=== PATIENT | male | born 1950 | race Caucasian/White ===

== ENCOUNTER → 2023-10-25 09:50 | Outpatient (REF) | payer MEDICARE, BC, SELFPAY ==
[2023-10-25 12:15] LABS: AST (SGOT) 27 U/L (17-59); Albumin 4.1 g/dl (3.5-5.0); Blood Urea Nitrogen 12 mg/dl (9-20); Carbon Dioxide 27 mmol/L (22-30); Glucose 93 mg/dl (70-99); Total Bilirubin 0.8 mg/dl (0.2-1.3); Total Cholesterol 151 mg/dl (50-199); Total Protein 6.8 g/dl (6.3-8.2); Triglyceride 85 mg/dl (10-149); Very Low Density Lipoprotein 17 mg/dl (0-30); eGFR > 60.00
[2023-10-25 12:17] LABS: % Basophils 0.8 % (0-2); % Eosinophils 2.2 % (0-6); % Immature Granulocytes 0.3 % (0-0.5); % Lymphocytes 21.9 % (20.5-51.1); % Monocytes 10.6 % (1.7-9.3); % Neutrophils 64.2 % (42.2-75.2); Absolute Basophils 0.1 10^3/uL (0-0.2); Absolute Eosinophils 0.2 10^3/uL (0-0.7); Absolute Lymphocytes 1.7 10^3/uL (1.2-3.4); Absolute Monocytes 0.8 10^3/uL (0.1-0.6); Hematocrit 38.7 % (39.0-52.0); Hemoglobin 13.2 g/dL (13.0-18.0); Mean Corp Hgb Conc. 34.1 g/dL (33.0-37.0); Mean Corpuscular Hgb 30.3 pg (27.0-31.0); Nucleated Red Blood Cells % 0 % (-); Platelet Count 282 10^3/uL (130-400); Red Blood Cell Count 4.35 10^6/uL (4.70-6.10); Red Cell Dist. Width 12.6 % (11.5-14.5); White Blood Cell Count 7.7 10^3/uL (4.8-10.8)
[2023-10-25 12:31] LABS: ALT (SGPT) 19 U/L (0-50); Alkaline Phosphatase 95 U/L (38-126); Calcium 9.2 mg/dl (8.4-10.2); Chloride 104 mmol/L (98-107); HDL Cholesterol 46 mg/dl; LDL Cholesterol, Calculated 88 mg/dl; Potassium 4.7 mmol/L (3.5-5.1); Sodium 139 mmol/L (135-145)
[2023-10-25 12:44] LABS: PSA, Total - Screen 1.74 ng/ml (0.0-4.0)
== END ==
LOC: HWLAB 09:50
PROVIDERS: ATTENDING PHYSICIAN Family Medicine
DX: J45.30 Mild persistent asthma, uncomplicated (principal); E78.2 Mixed hyperlipidemia; I10 Essential (primary) hypertension; Z12.5 Encounter for screening for malignant neoplasm of prostate
CPT/HCPCS: 36415; 80053; 80061; 85025; G0103

== ENCOUNTER → 2023-11-23 08:31 | Outpatient (REF) | payer MEDICARE, BC, SELFPAY | LOC: DHCBC/DCA 08:31 | PROVIDERS: ATTENDING PHYSICIAN Internal Medicine Cardiovascular Disease; FAMILY PHYSICIAN Family Medicine | DX: R06.09 Other forms of dyspnea (principal); I25.10 Atherosclerotic heart disease of native coronary artery without angina pectoris; Z95.5 Presence of coronary angioplasty implant and graft | CPT/HCPCS: 78452; 93017; A9500 ==

== ENCOUNTER → 2023-11-27 14:48 | Outpatient (REF) | payer MEDICARE, BC, SELFPAY | LOC: HWRCS 14:48 | PROVIDERS: ATTENDING PHYSICIAN Internal Medicine Cardiovascular Disease; FAMILY PHYSICIAN Family Medicine | DX: I25.10 Atherosclerotic heart disease of native coronary artery without angina pectoris (principal); R06.09 Other forms of dyspnea; Z95.5 Presence of coronary angioplasty implant and graft | CPT/HCPCS: 93306 ==

== ENCOUNTER → 2023-12-27 09:45 | Outpatient (REF) | payer MEDICARE, BC, SELFPAY | LOC: HWRAD 09:45 | PROVIDERS: ATTENDING PHYSICIAN Physician Assistant | DX: J40 Bronchitis, not specified as acute or chronic (principal) | CPT/HCPCS: 71046 ==

== ENCOUNTER → 2024-10-03 08:13 | Outpatient (REF) | payer MEDICARE, BC, SELFPAY ==
[2024-10-03 11:13] LABS: % Eosinophils 3.1 % (0-6); % Immature Granulocytes 0.1 % (0-0.5); % Lymphocytes 28.9 % (20.5-51.1); % Monocytes 12.7 % (1.7-9.3); % Neutrophils 54.2 % (42.2-75.2); Absolute Basophils 0.1 10^3/uL (0-0.2); Absolute Eosinophils 0.2 10^3/uL (0-0.7); Absolute Monocytes 0.9 10^3/uL (0.1-0.6); Absolute Neutrophils 3.8 10^3/uL (1.4-6.5); Hematocrit 39.6 % (39.0-52.0); Hemoglobin 13.4 g/dL (13.0-18.0); Mean Corp Hgb Conc. 33.8 g/dL (33.0-37.0); Mean Corpuscular Hgb 30.7 pg (27.0-31.0); Mean Corpuscular Volume 90.8 fL (80.0-94.0); Mean Platelet Volume 10.8 fL (7.4-10.4); Nucleated Red Blood Cells % 0 % (-); Platelet Count 233 10^3/uL (130-400); Red Blood Cell Count 4.36 10^6/uL (4.70-6.10); Red Cell Dist. Width 12.6 % (11.5-14.5)
[2024-10-03 11:21] LABS: ALT (SGPT) 19 U/L (0-50); AST (SGOT) 21 U/L (17-59); Albumin 4.1 g/dl (3.5-5.0); Alkaline Phosphatase 74 U/L (38-126); Blood Urea Nitrogen 12 mg/dl (9-20); Carbon Dioxide 28 mmol/L (22-30); Chloride 107 mmol/L (98-107); Glucose 93 mg/dl (70-99); HDL Cholesterol 41 mg/dl; LDL Cholesterol, Calculated 78 mg/dl; Magnesium 2.1 mg/dl (1.6-2.3); Potassium 4.6 mmol/L (3.5-5.1); Sodium 140 mmol/L (135-145); Total Bilirubin 0.5 mg/dl (0.2-1.3); Total Cholesterol 132 mg/dl (50-199); Total Protein 6.7 g/dl (6.3-8.2); Triglyceride 69 mg/dl (10-149); Very Low Density Lipoprotein 13 mg/dl (0-30); eGFR > 60.00
[2024-10-03 12:35] LABS: PSA, Total - Screen 1.55 ng/ml (0.0-4.0); TSH Reflex To Free T4 1.66 uIU/ml (0.47-4.68)
[2024-10-03 13:10] LABS: Folate 17.5 ng/ml (2.76-20); Vitamin B12 176 pg/ml (239-931)
== END ==
LOC: HWLAB 08:13
PROVIDERS: ATTENDING PHYSICIAN Student in an Organized Health Care Education/Training Program
DX: Z00.00 Encounter for general adult medical examination without abnormal findings (principal); I24.9 Acute ischemic heart disease, unspecified; K21.9 Gastro-esophageal reflux disease without esophagitis; Z12.5 Encounter for screening for malignant neoplasm of prostate; E78.5 Hyperlipidemia, unspecified
CPT/HCPCS: 36415; 80053; 80061; 82607; 82746; 83735; 84443; 85025; G0103

== ENCOUNTER → 2024-11-13 13:45 | Outpatient (REF) | payer MEDICARE, BC, SELFPAY | LOC: HWRCS 13:45 | PROVIDERS: ATTENDING PHYSICIAN Internal Medicine Cardiovascular Disease; FAMILY PHYSICIAN Student in an Organized Health Care Education/Training Program | DX: R55 Syncope and collapse (principal); I25.10 Atherosclerotic heart disease of native coronary artery without angina pectoris; I10 Essential (primary) hypertension; Z95.5 Presence of coronary angioplasty implant and graft | CPT/HCPCS: 93306 ==

== ENCOUNTER → 2024-11-14 12:35 | Outpatient (REF) | payer MEDICARE, BC, SELFPAY | LOC: RAD 12:35 | PROVIDERS: ATTENDING PHYSICIAN Internal Medicine Cardiovascular Disease; FAMILY PHYSICIAN Student in an Organized Health Care Education/Training Program | DX: R55 Syncope and collapse (principal) | CPT/HCPCS: 93880 ==

== ENCOUNTER → 2024-11-17 09:57 | Outpatient (REF) | payer MEDICARE, BC, SELFPAY | LOC: RCS 09:57 | PROVIDERS: ATTENDING PHYSICIAN Internal Medicine Cardiovascular Disease; FAMILY PHYSICIAN Student in an Organized Health Care Education/Training Program | DX: R55 Syncope and collapse (principal); I10 Essential (primary) hypertension; I25.10 Atherosclerotic heart disease of native coronary artery without angina pectoris; Z95.5 Presence of coronary angioplasty implant and graft | CPT/HCPCS: 93225; 93226 ==

== ENCOUNTER 2024-12-31 17:05 | Emergency (ER) | payer MEDICARE, BC, SELFPAY ==
[2024-12-31 17:17] VITALS: BP 164/83
--- NOTE | 2024-12-31 18:02 | ED.SKININJ ---
HPI-Injury
General
Chief Complaint: Bite
Source: patient
Time Seen by Provider: 12/31/24 17:47
History of Present Illness-Injury
Initial Injury comments:
74-year-old male with past medical history of CAD status post previous AR, peripheral arterial disease, chronic bronchitis, previous diverticulitis presenting to the ER for evaluation after he was stung by multiple bees while doing yard work earlier
this afternoon approximately 1 hour prior to arrival to the ER. Patient reports that about 8 years ago he did have an allergic reaction to bee stings which is why he decided to come to the ER this evening. Patient did not take any medications
prior to arrival other than some topical insect sting to help sooth the affected areas. Patient denies any difficulty breathing, coughing, vomiting or any other symptoms at this time. He states the only symptom he is currently feeling is a little
bit sleepy and some localized tenderness to where the stings occurred.
Past History
Past History
ED Past Medical History: CAD, HTN, Hypercholesterolemia, AR and Other (Carotid artery stenosis, diverticulitis)
ED Past Surgical History: Cardiac (PTCA with stent x2 in 2005)
Social History
Tobacco: Non-smoker
Alcohol: None
Drug: None
Personal:
Living: with family
Employment: Employed
Family History
Family History: Diabetes and Early CAD
Review of Systems
Review of Systems
All Other Systems: ROS reviewed and negative except as documented in HPI and ROS
Phy Exam
Physical Exam
Physical Exam:
GENERAL: Alert , in no apparent distress
EYE: conjunctiva clear
NECK: Supple
ENT: o/p clr, mmm. No stridor or trismus
CARDIAC: Regular rate and rhythm
LUNGS: Clear breath sounds bilaterally, no acute respiratory distress, no wheezes/rales/rhonchi
NEUROLOGICAL: Alert and oriented
SKIN: Warm and dry, skin intact. Multiple small stain sites along the back of the head, left upper extremity, left lateral chest wall and left leg
MUSCULOSKELETAL: well perfused.
PSYCH: Normal and appropriate interaction.
Scores
Heart Failure Risk
Heart Failure Risk Score: Not Applicable
Heart Score for Chest Pain Patients
STEMI patient?: Not applicable
Withdrawal Assessment of Alcohol
Withdrawal Assessment Completed?: Not applicable
Course
Orders/Labs/Results
Orders:
Orders
12/31/24 17:59
Diphenhydramine [Benadryl] 50 mg PO NOW STA
Ibuprofen [Motrin] 600 mg PO NOW STA
Prednisone [Deltasone] 50 mg PO NOW STA
Vital Signs
Initial and Last Documented VS:
Initial Vital Signs
Temp Pulse Resp BP Pulse Ox
98.0 F 70 16 164/83 98
12/31/24 17:17 12/31/24 17:17 12/31/24 17:17 12/31/24 17:17 12/31/24 17:17
Last Documented Vital Signs
Temp Pulse Resp BP Pulse Ox
98.0 F 70 16 164/83 98
12/31/24 17:17 12/31/24 17:17 12/31/24 17:17 12/31/24 17:17 12/31/24 18:03
MDM/Problems Addressed
Differential Diagnosis Includes:
Localized bee sting
No current symptoms to suggest allergic reaction/anaphylaxis
No concern for infectious etiology at this time
MDM/Problems Addressed:
74-year-old male presenting to the ER for evaluation after being stung by multiple bees 1 hour prior to arrival. Reported history of allergic reaction in the past however no current symptoms to suggest allergic reaction. Given his reported history
will still treat here with p.o. Benadryl, prednisone and Motrin. Will observe in the ER for any signs of reaction. Patient's primary care provider did send him a prescription for an EpiPen earlier today. Disposition pending.
*Pulse Oximetry
SaO2: 98
Oxygen Mode of Delivery: Room air
Patient hypoxic: no
*Critical Care Note
Total Time (30-74mins, 75-104mins- exclusive of procedures): Not Applicable
Patient Management
Escalation/DeEscalation of care consider admission/obs:
Following observation patient continues to feel well and is asking to be discharged home. He confirmed with me that prescription for the EpiPen had arrived to the pharmacy. Continue Benadryl/NSAIDs or Tylenol as needed for pain. Patient aware of
return precautions to the ER.
ED Attending Note
-
Portions of this chart may have been created with voice recognition software.� Occasional wrong word or��sound alike� substitutions may have occurred due to the inherent limitations of voice recognition software.
Discharge Plan
Departure
Patient Disposition: Home (Routine Discharge)
Date of Disposition: 12/31/24
Time of Disposition: 19:00
Patient with high blood pressure during this ER visit?: Yes
Discharge Problem:
Bee sting
Instructions: Insect Bites and Stings (DC)
Prescriptions:
No Action
epinephrine [EpiPen 2-Heron] 0.3 MG/0.3 ML auto-injector
0.3 mg IM PRN PRN (Reason: bee sting reaction) Qty: 1 0RF
aspirin 81 MG tablet,delayed release (DR/EC)
81 mg PO DAILY
Patient Comments:
' not really taking this at all'
ezetimibe-simvastatin 1 TABLET tablet
1 tab PO QPM
nitroglycerin 0.4 MG tablet, sublingual
0.4 mg sublingual [id number] PRN (Reason: cp) Qty: 0 0RF
coenzyme N24-vilirry E [Co Q-10 (with Vit E)] 1 EACH capsule
1 ea PO DAILY
albuterol sulfate [Proventil HFA] 90 MCG/PUFF HFA aerosol inhaler
1 puff inhalation Q4HPRN PRN (Reason: cough, wheezing) Qty: 1 0RF
Rx Instructions:
please dispense with spacer and instruct in it's use.
Multivitamin
1 tab PO DAILY
metronidazole 500 MG tablet
500 mg PO TID 10 Days 0RF
ciprofloxacin HCl 500 MG tablet
1 tab PO BID
Referrals:
Pedro Ventura MD [Family Provider, Family Practice]
Interventions
Interventions:
*Risk Screen - Suicide Last Done: 12/31/24 17:17
*Neglect/Abuse Screening Last Done: 12/31/24 17:17
*Nursing Disposition Last Done: 12/31/24 19:30
ED-Skin Assessment Last Done: 12/31/24 17:38
Discharge Date and Time
Discharge Date/Time: 12/31/24 20:16
Print Language: ALGERIAN
[2024-12-31] MEDS: BENADRYL 50 MG PO (18:18)
[2024-12-31] MEDS: MOTRIN 600 MG PO (18:18)
[2024-12-31] MEDS: DELTASONE 50 MG PO (18:18)
== END 2024-12-31 20:16 | disposition home or self-care (01) ==
LOC: EMR 17:05
PROVIDERS: EMERGENCY PHYSICIAN Emergency Medicine; FAMILY PHYSICIAN Student in an Organized Health Care Education/Training Program
DX: T63.441A Toxic effect of venom of bees, accidental (unintentional), initial encounter (principal); I25.10 Atherosclerotic heart disease of native coronary artery without angina pectoris; I10 Essential (primary) hypertension; E78.00 Pure hypercholesterolemia, unspecified; I25.2 Old myocardial infarction; I65.29 Occlusion and stenosis of unspecified carotid artery; Z82.49 Family history of ischemic heart disease and other diseases of the circulatory system; Z83.3 Family history of diabetes mellitus; Z95.5 Presence of coronary angioplasty implant and graft
CPT/HCPCS: 99282

== ENCOUNTER → 2025-03-04 09:12 | Outpatient (REF) | payer MEDICARE, BC, SELFPAY ==
[2025-03-04 12:29] LABS: Hematocrit 40.6 % (39.0-52.0); Hemoglobin 13.7 g/dL (13.0-18.0); Mean Corp Hgb Conc. 33.7 g/dL (33.0-37.0); Mean Corpuscular Volume 91.4 fL (80.0-94.0); Nucleated Red Blood Cells % 0 % (-); Platelet Count 217 10^3/uL (130-400); Red Cell Dist. Width 13.2 % (11.5-14.5)
[2025-03-04 12:38] LABS: ALT (SGPT) 16 U/L (0-50); AST (SGOT) 21 U/L (17-59); Albumin 4.2 g/dl (3.5-5.0); Alkaline Phosphatase 74 U/L (38-126); Blood Urea Nitrogen 13 mg/dl (9-20); Calcium 9.1 mg/dl (8.4-10.2); Carbon Dioxide 28 mmol/L (22-30); Chloride 106 mmol/L (98-107); Glucose 90 mg/dl (70-99); HDL Cholesterol 45 mg/dl; LDL Cholesterol, Calculated 75 mg/dl; Potassium 4.6 mmol/L (3.5-5.1); Sodium 138 mmol/L (135-145); Total Protein 6.8 g/dl (6.3-8.2); Very Low Density Lipoprotein 15 mg/dl (0-30); eGFR > 60.00
[2025-03-04 13:27] LABS: Vitamin B12 179 pg/ml (239-931)
== END ==
LOC: HWLAB 09:12
PROVIDERS: ATTENDING PHYSICIAN Student in an Organized Health Care Education/Training Program
DX: Z01.89 Encounter for other specified special examinations (principal); E78.2 Mixed hyperlipidemia; E53.8 Deficiency of other specified B group vitamins
CPT/HCPCS: 36415; 80053; 80061; 82607; 85025